=== PATIENT | female | born 1985 | race Caucasian/White ===

== ENCOUNTER 2022-05-30 12:07 | Emergency (ER) | payer SELFPAY ==
[2022-05-30 12:28] VITALS: BP 115/68; PULSE 63; RESP 18; TEMP 36.8; O2SAT 99; BMI 25.1
--- NOTE | 2022-05-30 12:45 | PC.NURSE ---
PHYSICIAN INSTRUCTED NOT TO GET BLOOD CULTURES
[2022-05-30] MEDS: cefTRIAXone 1,000 MG in sodium chloride 0.9% (plus) 50 ML 100 MG IV (13:17)
[2022-05-30 13:18] LABS: Basophils # 0.1 10^3/uL (0.0-0.1); Basophils % 0.4 %; Eosinophils # 0.2 10^3/uL (0.0-0.8); Eosinophils % 1.2 %; Hematocrit 37.3 % (37.0-47.0); Hemoglobin 12.7 g/dL (11.5-15.3); Lymphocytes # 3.5 10^3/uL (0.8-4.8); Lymphocytes % 24.4 %; Mean Corpuscular Hemoglobin 30.5 pg (28.0-34.0); Mean Corpuscular Volume 89.4 fl (81-99); Mean Platelet Volume 10.7 fL (7.4-10.4); Monocytes # 1.1 10^3/uL (0.2-0.9); Monocytes % 7.7 %; Neutrophils % 65.9 %; Nucleated Red Blood Cells % 0 %; Platelet Count 239 10^3/cmm (130-400); Red Blood Count 4.17 10^6/uL (4.1-5.3); Red Cell Distribution Width 12.2 % (12.1-15.1); White Blood Count 14.4 10^3/uL (4.0-10.0)
[2022-05-30] MEDS: ketorolac 30 mg/mL INJ 15 MG IVP (13:18)
[2022-05-30] MEDS: sodium chloride 0.9% 1,000 ML 999 ML IV (13:18)
--- NOTE | 2022-05-30 13:20 | CTR_ITS ---
PROCEDURE INFORMATION: Exam: CT Abdomen And Pelvis Without Contrast Exam date and time: 05/30/2022 3:43 PM Age: 36 years old Clinical indication: Abdominal pain; Flank; Right; Prior surgery; Surgery date: 6+ months; Surgery type: Hyster; Additional info: Right flank pain, TECHNIQUE: Imaging protocol: Computed tomography of the abdomen and pelvis without contrast. Axial, coronal and sagittal reformatted images were created and reviewed. Radiation optimization: All CT scans at this facility use at least one of these dose optimization techniques: automated exposure control; mA and/or kV adjustment per patient size (includes targeted exams where dose is matched to clinical indication); or iterative reconstruction. COMPARISON: No relevant prior studies available. RADIATION DOSE METRICS: Total DLP (mGy-cm): 382.39 FINDINGS: Liver: Unremarkable. Gallbladder and bile ducts: No radiodense gallstones. No biliary ductal dilatation. Pancreas: Unremarkable. Spleen: Unremarkable. Adrenal glands: Normal. No mass. Kidneys and ureters: Moderate right-sided hydroureteronephrosis and perinephric/periureteral stranding, secondary to a 7 x 5 mm distal right ureteral calculus (axial image 72 and coronal image 33). Punctate nonobstructing left renal calculus. Stomach and bowel: No bowel wall thickening. No obstruction. No pneumatosis. Appendix: Normal. Intraperitoneal space: No free fluid. No organized fluid collection. No free air. Vasculature: Unremarkable. No aneurysm. Lymph nodes: No pathologically enlarged lymph nodes. Urinary bladder: Unremarkable as visualized. Reproductive: Unremarkable. Bones/joints: No acute osseous abnormality. Soft tissues: Breast implants in place. CT/CT abdomen pelvis [facility] [id number] IMPRESSION: 1. Moderate right-sided hydroureteronephrosis and perinephric/periureteral stranding, secondary to a 7 x 5 mm distal right ureteral calculus. 2. Additional findings, as above.
[2022-05-30] MEDS: ondansetron 2 mg/ML SDV 2 mL 8 MG IVP (13:22)
[2022-05-30 13:33] LABS: Alanine Aminotransferase 11 U/L (0-33); Albumin Level 4.1 g/dL (3.5-5.2); Alkaline Phosphatase 65 U/L (35-105); Blood Urea Nitrogen 19 mg/dL (6-20); Calcium 9.7 mg/dL (8.5-10.5); Carbon Dioxide 25 mmol/L (22-29); Chloride 100 mmol/L (98-107); Globulin 2.7 g/dL (1.3-4.6); Glomerular Filtration Rate 42.3 mL/min (90-130); Glucose 101 mg/dL (65-115); Osmolality Calculated 286 mOsm/kg (285-295); Sodium 137 mmol/L (136-145); Total Bilirubin 0.4 mg/dL (0.15-1.2); Total Protein 6.8 g/dL (6.6-8.7)
[2022-05-30 13:35] LABS: Anion Gap 16.1 (5-19); Aspartate Amino Transferase 18 U/L (0-32); Potassium 4.1 mmol/L (3.5-5.1)
--- NOTE | 2022-05-30 13:45 | ED_ITS ---
HPI - Abdominal Pain General: Chief Complaint: Abdominal Pain Stated Complaint: low back pain, urinary pain Time Seen by Provider: 05/30/22 12:33 History of Present Illness: 36-year-old female presenting today with dysuria polyuria and right flank pain. Patient notes right flank pain wrapping around to her front. Has a history of of renal blockages/nephrolithiasis in the past. Was told by her primary care doctor she had a urinary tract infection as well as leukocytosis. Instructed to come to the ED. Patient states she said symptoms for almost a week. Associated with nausea and vomiting. No associated diarrhea. Review of Systems General: Reports: 10 or more systems reviewed and unremarkable except in HPI and below Physical Exam Const: COMMON NORMALS: no acute distress, patient oriented x3 and alert GENERAL APPEARANCE: cooperative ORIENTATION/CONSCIOUSNESS: Yes awake, Yes oriented to person, Yes oriented to place and Yes oriented to time HENMT: COMMON NORMALS: normocephalic, atraumatic, external ears normal, Normal external nose present and moist oral mucous membranes HEAD & SCALP: normal to inspection, normocephalic and atraumatic NOSE: Normal external nose present GENERAL EAR: hearing grossly impaired EXTERNAL EAR: Yes external ears normal Eye: COMMON NORMALS: Equal, round and reactive pupils present, EOMs intact bilaterally, conjunctivae normal and no scleral icterus GENERAL EYE: appearance normal, both eyes and all related structures EYELID: eyelids normal CONJUNCTIVA: Yes conjunctivae normal SCLERA: sclerae normal PUPIL: Yes Equal, round and reactive pupils present Neck/C-Spine: COMMON NORMALS: full ROM, supple and no JVD GENERAL: Yes normal visual inspection Lymph: LYMPHATIC: no lymphadenopathy noted and no lymphedema noted Chest: COMMONS NORMALS: normal inspection of the chest Resp: COMMON NORMALS: normal respiratory effort, No retractions and No use of accessory muscles Cardio: COMMON NORMALS: no JVD, regular rate and regular rhythm RATE: regular rate RHYTHM: regular rhythm GI: COMMON NORMALS: Normal to inspection, nondistended, normoactive bowel sounds present : COMMON NORMALS: Yes no CVA tenderness BLADDER/KIDNEY EXAM: Yes no CVA tenderness Back/Pelvis: COMMON NORMALS: no CVA tenderness and thoracic and lumbar spine normal to inspection Extremity: COMMON NORMALS: normal to inspection, full ROM and capillary refill normal GENERAL: Yes normal exam except as noted Neuro: COMMON NORMALS: patient oriented x3, CN's II-XII intact bilaterally, moves all extremities, no focal motor deficits, no sensory deficits noted and gait normal SENSORIUM/ORIENTATION: Yes alert, Yes oriented to person, Yes oriented to place and Yes oriented to time Psych: COMMON NORMALS: mental status grossly normal, Normal thought process present, cooperative and normal affect THOUGHT PROCESS: Normal thought process present Skin: COMMON NORMALS: no rashes or lesions noted and no wounds GENERAL SKIN EXAM: no rashes or lesions noted Course Vital Signs: Vital signs: Vital Signs Temperature 98.3 F 05/30/22 12:28 Pulse Rate 74 05/30/22 15:44 Respiratory Rate 16 05/30/22 17:50 Blood Pressure 100/57 05/30/22 15:44 Pulse Oximetry 97 05/30/22 15:44 Oxygen Delivery Me thod 05/30/22 15:44 MDM - Abdominal Pain Medical Decision Making 36-year-old female presenting today with dysuria polyuria and flank pain. Urinalysis is not suggestive of UTI. CT KUB with evidence of 7 mm distal UVJ stone. Will place patient on diclofenac for the same. Referral to Dr. Fortune placed. Diclofenac and oxycodone given for pain control. Patient with minor renal insufficiency. Will need continued follow-up. Patient was given strict return precautions and recommended routine outpatient follow-up. Lab Data : 05/30/22 13:09 05/30/22 13:09 Labs/Radiology: Radiology Impressions Abdomen/Pelvis CT 05/30/22 13:20 IMPRESSION: 1. Moderate right-sided hydroureteronephrosis and perinephric/periureteral stranding, secondary to a 7 x 5 mm distal right ureteral calculus. 2. Additional findings, as above. Laboratory Results WBC 14.4 10^3/uL (4.0-10.0) H 05/30/22 13:09 RBC 4.17 10^6/uL (4.1-5.3) 05/30/22 13:09 Hgb 12.7 g/dL (11.5-15.3) 05/30/22 13:09 Hct 37.3 % (37.0-47.0) 05/30/22 13:09 MCV 89.4 fl (81-99) 05/30/22 13:09 MCH 30.5 pg (28.0-34.0) 05/30/22 13:09 MCHC 34.0 g/dL (30.0-36.0) 05/30/22 13:09 RDW 12.2 % (12.1-15.1) 05/30/22 13:09 Plt Count 239 10^3/cmm (130-400) 05/30/22 13:09 MPV 10.7 fL (7.4-10.4) H 05/30/22 13:09 Neut % (Auto) 65.9 % 05/30/22 13:09 Lymph % (Auto) 24.4 % 05/30/22 13:09 [place] % (Auto) 7.7 % 05/30/22 13:09 Eos % (Auto) 1.2 % 05/30/22 13:09 Baso % (Auto) 0.4 % 05/30/22 13:09 Neut # (Auto) 9.50 10^3/uL (1.8-7.7) H 05/30/22 13:09 Lymph # (Auto) 3.5 10^3/uL (0.8-4.8) 05/30/22 13:09 [place] # (Auto) 1.1 10^3/uL (0.2-0.9) H 05/30/22 13:09 Eos # (Auto) 0.2 10^3/uL (0.0-0.8) 05/30/22 13:09 Baso # (Auto) 0.1 10^3/uL (0.0-0.1) 05/30/22 13:09 Nucleated RBC % (auto) 0 % 05/30/22 13:09 Nucleated RBCs # 0.0 /100WBC 05/30/22 13:09 Sodium 137 mmol/L (136-145) 05/30/22 13:09 Potassium 4.1 mmol/L (3.5-5.1) 05/30/22 13:09 Chloride 100 mmol/L (98-107) 05/30/22 13:09 Carbon Dioxide 25 mmol/L (22-29) 05/30/22 13:09 Anion Gap 16.1 (5-19) 05/30/22 13:09 BUN 19 mg/dL (6-20) 05/30/22 13:09 Creatinine 1.4 mg/dL (0.5-0.9) H 05/30/22 13:09 GFR Calculation 42.3 mL/min (90-130) L 05/30/22 13:09 Glucose 101 mg/dL (65-115) 05/30/22 13:09 Calculated Osmolality 286 mOsm/kg (285-295) 05/30/22 13:09 Calcium 9.7 mg/dL (8.5-10.5) 05/30/22 13:09 Total Bilirubin 0.4 mg/dL (0.15-1.2) 05/30/22 13:09 AST 18 U/L (0-32) 05/30/22 13:09 ALT 11 U/L (0-33) 05/30/22 13:09 Alkaline Phosphatase 65 U/L (35-105) 05/30/22 13:09 Total Protein 6.8 g/dL (6.6-8.7) 05/30/22 13:09 Albumin 4.1 g/dL (3.5-5.2) 05/30/22 13:09 Globulin 2.7 g/dL (1.3-4.6) 05/30/22 13:09 Urine Color Yellow (Yellow) 05/30/22 15:43 Urine Appearance Clear (CLEAR) 05/30/22 15:43 Urine pH 6 (5-7) 05/30/22 15:43 Ur Specific [place] 1.005 (1.005-1.030) 05/30/22 15:43 Urine Protein Neg (Negative) 05/30/22 15:43 Urine Glucose (UA) Norm (Normal) 05/30/22 15:43 Urine Ketones Negative (Negative) 05/30/22 15:43 Urine Blood 2+ (Negative) H 05/30/22 15:43 Urine Nitrate Negative (Negative) 05/30/22 15:43 Urine Bilirubin Neg (Negative) 05/30/22 15:43 Urine Urobilinogen Norm mg/dL (Negative) 05/30/22 15:43 Ur Leukocyte Esterase Negative (Negative) 05/30/22 15:43 Urine RBC 0-4 /hpf (0-2) H 05/30/22 15:43 Urine WBC 0-4 /hpf (0-5) H 05/30/22 15:43 Ur Squamous Epith Cells 0-4 /hpf (0-5) H 05/30/22 15:43 Amorphous Sediment Not Reportable 05/30/22 15:43 Urine Bacteria Trace /hpf (NONE) 05/30/22 15:43 Discharge Plan Discharge Patient Disposition: Home Clinical Impression: Ureterolithiasis Condition: Stable Prescriptions: New oxycodone 5 mg tablet 5 mg PO Q6H PRN (Reason: pain) Qty: 10 0RF diclofenac sodium 75 mg tablet,delayed release (DR/EC) 75 mg PO BID Qty: 30 0RF ondansetron HCl 8 mg tablet 8 mg PO Q8H PRN (Reason: nausea and vomiting) 5 Days Qty: 30 0RF No Action ibuprofen 200 mg Tablet 600 mg PO Q6H PRN (Reason: Pain) Azo Cranberry 250 mg Tablet,Chewable 250 mg PO .ONCE Discharge Orders: Discharge ED (Routine); Ordered 05/30/22 Ordered By: Sven Garcia Patient Instructions: Kidney Stones, Opioid Safety, Pain Management Stand Alone Forms: Work/School Release Coding Level of Care Code ED Schedule Clerk for Chg Fwd Exam Comprehensive
[2022-05-30 14:02] VITALS: BP 114/80; PULSE 59; RESP 16; O2SAT 98
[2022-05-30 15:44] VITALS: BP 100/57; PULSE 74; RESP 16; O2SAT 97
[2022-05-30 16:10] LABS: Urine Appearance Clear (CLEAR); Urine Color Yellow (Yellow); pH Urine 6 (5-7)
[2022-05-30 16:11] LABS: Add Urine Culture? No; Add Urine Microscopic? YES; Bacteria Urine TRACE /hpf; Bilirubin Urine Neg (Negative); Blood Urine 2+ (Negative); Glucose Urine UA Norm (Normal); Ketones Urine Negative (Negative); Leukocyte Esterase Urine Negative (Negative); Nitrate Urine Negative (Negative); Protein Urine Neg (Negative); RBC Urine 0-4 /hpf (0-2); Specific Gravity, Urine 1.005 (1.005-1.030); Squamous Epithelial Cell Urine 0-4 /hpf (0-5); Urobilinogen Urine Norm (Negative); WBC Urine 0-4 /hpf (0-5)
[2022-05-30 17:50] VITALS: RESP 16
[2022-05-30] MEDS: morphine 4 mg/mL SDV 1 mL IVP (17:50)
[2022-05-30 18:10] LABS: HCG Qualitative Urine. Negative (Negative)
--- NOTE | 2022-06-02 11:10 | DCPLANNER ---
Addendum entered by Delfina Camp 06/04/22 12:26: An appointment was scheduled for patient with urology - patient cancelled the appointment. Original Note: marketing manager health communications had message to schedule a follow up appointment for patient with urology. marketing manager health communications sent patients information to the front office staff at urology. Patients information will be printed and reviewed. Clinic will call patient with appointment information.
== END 2022-05-30 18:07 | disposition home or self-care (01) ==
PROVIDERS: Emergency Provider Emergency Medicine
DX: N20.1 Calculus of ureter (principal)
CPT/HCPCS: 74176; 80053; 81001; 81025; 85025; 96365; 96366; 96375; 99285; J0696; J1885; J2270; J2405; J7030

== ENCOUNTER 2024-12-30 11:44 | Outpatient (CLI) | payer MEDICAID, SELFPAY ==
--- NOTE | 2024-12-30 11:50 | XR_ITS ---
WS: [email or web address] Exam: XR thoracic spine 3V* [id number] Date/Time of Exam: 12/30/2024 12:00 PM Reason For Exam: THORACIC REGION BACK PAIN No fracture or malalignment. Disc bases are preserved. Minimal spondylosis. Normal paraspinal soft tissues. IMPRESSION1. No fracture or malalignment.
--- NOTE | 2024-12-30 11:50 | XR_ITS ---
WS: [email or web address] Exam: XR cervical spine fl/ex [id number] Date/Time of Exam: 12/30/2024 12:00 PM Reason For Exam: CHRONIC NECK PAIN No fracture or malalignment. No significant flexion or extension instability. There is straightening in the neutral position. Early degenerative disc narrowing at C5-6. Normal paraspinal soft tissues. XR/XR cervical spine fl/ex [id number] IMPRESSION: 1. Straightening. No malalignment or instability identified.
== END 2024-12-30 11:45 | disposition home or self-care (01) ==
LOC: RAD 11:48
PROVIDERS: PCP Nurse Practitioner Family; Visit Provider Nurse Practitioner Family
DX: M50.322 Other cervical disc degeneration at C5-C6 level (principal); M54.6 Pain in thoracic spine; R93.7 Abnormal findings on diagnostic imaging of other parts of musculoskeletal system
CPT/HCPCS: 72040; 72072